=== PATIENT | female | born 1970 | race Caucasian/White ===

== ENCOUNTER 2020-12-16 11:43 | Emergency (ER) | payer SELFPAY ==
[~2020-12-16 11:43] MED LIST: CLARITIN10 MG PO; COLACE100 MG PO; DIFLUCAN150 MG PO; ETODOLAC200 MG PO; HYDROCHLOROTHIA25 MG PO; IBUPROFEN600 MG PO; NEOMYCIN-POLY-7.5 ML OP; NORCO 10-325 T1 EACH PO; SINGULAIR10 MG PO
[2020-12-16 12:44] LABS: HEMOGLOBIN 14.7 gm/dl (12.3-15.3); RED BLOOD COUNT 4.94 M/UL (4.00-5.10); WHITE BLOOD COUNT 9.1 K/UL (4.5-11.0)
[2020-12-16 13:05] LABS: BUN/CREATININE RATIO 24 (0-10)
[2020-12-16] MEDS ORDERED: AUGMENTIN 875-1 EACH PO (14:52)
[2020-12-16] MEDS ORDERED: NAPROSYN500 MG PO (14:52)
[2020-12-16] MEDS ORDERED: LISINOPRIL10 MG PO (14:52)
== END 2020-12-16 15:25 | disposition home or self-care (01) ==
LOC: ER1 11:43
PROVIDERS: Physician Assistant
DX: J32.9 Chronic sinusitis, unspecified (principal); I10 Essential (primary) hypertension; Z90.710 Acquired absence of both cervix and uterus; Z79.899 Other long term (current) drug therapy; Z91.14 Patient's other noncompliance with medication regimen
CPT/HCPCS: 70450; 80053; 84484; 85025; 93005; 96374; 99284; J1885

== ENCOUNTER 2021-02-16 18:00 | Emergency (ER) | payer SELFPAY ==
[~2021-02-16 18:00] MED LIST changes: +AUGMENTIN 875-1 EACH PO; +LISINOPRIL10 MG PO; +NAPROSYN500 MG PO
[2021-02-16] MEDS ORDERED: DECADRON6 MG PO (22:23)
== END 2021-02-16 22:30 | disposition home or self-care (01) ==
LOC: ER1 18:00
DX: R50.9 Fever, unspecified (principal); R05 Cough; I10 Essential (primary) hypertension; Z90.710 Acquired absence of both cervix and uterus
CPT/HCPCS: 71045; 81001; 99284; U0002

== ENCOUNTER 2022-03-10 13:13 | Emergency (ER) | payer SELFPAY ==
[~2022-03-10 13:13] MED LIST changes: +DECADRON6 MG PO
[2022-03-10 14:04] LABS: HEMOGLOBIN 14.1 gm/dl (12.3-15.3); RED BLOOD COUNT 4.55 M/UL (4.00-5.10); WHITE BLOOD COUNT 9.7 K/UL (4.5-11.0)
[2022-03-10 14:25] LABS: BUN/CREATININE RATIO 18 (0-10)
== END 2022-03-10 17:15 | disposition home or self-care (01) ==
LOC: ER1 13:13
PROVIDERS: Nurse Practitioner
DX: R51.9 Headache, unspecified (principal); I10 Essential (primary) hypertension; Z51.81 Encounter for therapeutic drug level monitoring
CPT/HCPCS: 70450; 70496; 70498; 71045; 80053; 80307; 81001; 85025; 85610; 85730; 87086; 96374; 99284; J1885; Q9967